=== PATIENT | female | born 1970 | race Two or more races ===

== ENCOUNTER 2022-12-27 16:31 | Emergency (ER) | payer OTHER ==
[~2022-12-27] VITALS: Ht 154.9 cm; Wt 54.4 kg
[2022-12-27 17:47] VITALS: BP 147/94; TEMP 98.2; O2SAT 96
== END 2022-12-27 17:48 | disposition left against medical advice (07) ==
LOC: ER 16:44
DX: R51.9 Headache, unspecified (principal); M54.2 Cervicalgia; M54.50 Low back pain, unspecified; V32.5XXA Driver of three-wheeled motor vehicle injured in collision with two- or three-wheeled motor vehicle in traffic accident, initial encounter; Y93.89 Activity, other specified; Y92.89 Other specified places as the place of occurrence of the external cause; Y99.8 Other external cause status